=== PATIENT | male | born 1960 | race Caucasian/White ===

== ENCOUNTER 2021-10-08 12:44 | Emergency (ER) | payer OTHER ==
[~2021-10-08] VITALS: Ht 167.6 cm; Wt 79.8 kg
--- NOTE | 2021-10-08 12:44 | NUR ---
EDE RA90 Escorted by Daughter "Hx of Liver cirrhosis- weaker than usual". TO ER BED 8, HOOKED TO MONITOR, CHANGED TO HOSP GOWN, WARM BLANKET PROVIDED. PATIENT NOT ANSWERING WHEN QUESTIONS ARE ASKED. NOTED W LAC 20G IV PERIPHERAL LINE PATENT AND FLUSHING. HOOKED TO 500ML 0.9% NS. APPROXIMATELY 200ML GIVEN UPON ARRIVAL TO ED. AWAITING MD SINHA.
--- NOTE | 2021-10-08 12:47 | NUR ---
DR ENCISO AT BEDSIDE
--- NOTE | 2021-10-08 13:14 | NUR ---
TROLLEY [employer] AT [facility]
[2021-10-08 13:25] LABS: BASOPHILS # (AUTO) 0.2 K/uL (0.0-0.2); BASOPHILS % (AUTO) 1.3 % (0.0-2.0); EOSINOPHILS % (AUTO) 1.2 % (0.0-6.0); HEMATOCRIT 33 % (39-51); HEMOGLOBIN 11.2 g/dL (13.5-17.5); LYMPHOCYTES # (AUTO) 2.9 K/uL (0.8-4.8); LYMPHOCYTES % (AUTO) 21.3 % (20.0-44.0); MEAN CORPUSCULAR HGB CONC 34 g/dl (31.0-36.0); MEAN CORPUSCULAR VOLUME 93 fL (80-96); MONOCYTES # (AUTO) 1.5 K/uL (0.1-1.30); MONOCYTES % (AUTO) 11.4 % (2.0-12.0); NEUTROPHILS # (AUTO) 8.7 K/uL (1.8-8.9); NEUTROPHILS % (AUTO) 64.8 % (43.0-81.0); PLATELET COUNT (AUTO) 377 K/uL (150-450); RED BLOOD CELL COUNT(AUTO) 3.55 MIL/uL (4.5-6.0); WHITE BLOOD COUNT (AUTO) 13.4 K/uL (4.3-11.0)
--- NOTE | 2021-10-08 13:42 | NUR ---
CALLED [facility] [phone] WILL FAX US CLINICALS
--- NOTE | 2021-10-08 14:11 | NUR ---
rapid covid swab done and sent to lab
[2021-10-08 14:40] LABS: ALANINE AMINOTRANSFERASE 34 U/L (12-78); ALBUMIN 2.2 g/dL (3.4-5.0); ALKALINE PHOSPHATASE 329 U/L (46-116); ASPARTATE AMINOTRANSFERASE 68 U/L (15-37); BILIRUBIN,DIRECT 1.4 mg/dL (0.0-0.2); BILIRUBIN,TOTAL 2.3 mg/dL (0.2-1.0); CALCIUM, SERUM 8.1 mg/dL (8.5-10.1); CARBON DIOXIDE 23 mmol/L (21-32); CHLORIDE 107 mmol/L (98-107); CREATININE 1.4 mg/dL (0.6-1.3); GLUCOSE 117 mg/dL (74-106); POTASSIUM 3.5 mmol/L (3.5-5.1); SODIUM SERUM 143 mmol/L (136-145); TOTAL PROTEIN, SERUM 7.7 g/dL (6.4-8.2); UREA NITROGEN, BLOOD 12 mg/dL (7-18)
[2021-10-08] MEDS ORDERED: CEFEPIME 1 GM in IV D5W 50 ML IV ONE (15:30)
--- NOTE | 2021-10-08 15:36 | NUR ---
URINE SAMPLE COLLECTED AND SENT TO LAB
[2021-10-08 16:27] LABS: BILIRUBIN,URINE NEGATIVE (NEGATIVE); COLOR,URINE YELLOW (YELLOW); LEUKOCYTE ESTERASE ,URINE NEGATIVE (NEGATIVE); NITRITE, URINE NEGATIVE (NEGATIVE); PH,URINE 7.5 (5.0-8.0); PROTEIN,URINE NEGATIVE (NEGATIVE); UGLUCOSE NEGATIVE (NEGATIVE); UROBILINOGEN,URINE 0.2 EU/dL (0.2)
[2021-10-08 17:14] LABS: BAND % (MANUAL) 4 % (0.0-5.0); LYMPHOCYTES % (MANUAL) 16 % (16-48); MONOCYTES % (MANUAL) 7 % (0-11.0); NEUTROPHILS % (MANUAL) 73 (42-76)
--- NOTE | 2021-10-08 18:09 | NUR ---
RIDGELY [facility] 127/62 98 98% RR18 DR. WALKER WILL CALL US BACK.
--- NOTE | 2021-10-08 18:26 | NUR ---
FOLLOWED UP WITH MAIN LAB WITH AMMONIA RESULTS, PER DENTAL ASSISTANT, MACHINE IS HAVING MAINTENANCE AND WILL UPDATE US OF THE RESULT
--- NOTE | 2021-10-08 19:01 | NUR ---
CALLED RENEA WALKER [phone] IS NEGATIVE AND STILL AWAITING AMONIA LEVEL.
--- NOTE | 2021-10-08 19:37 | NUR ---
ammonioa 186
[2021-10-08 19:39] LABS: SERUM AMMONIA 186 umol/L (11-32)
[2021-10-08] MEDS ORDERED: LACTULOSE 10 G/15 ML UDC (PYXIS) PO ONE (20:00)
--- NOTE | 2021-10-08 20:02 | NUR ---
S/W JOSE G FROM [facility] [place] INFO GOING TO [facility] ACCEPTING MD DR MARCO Nelson ED TO ED [phone] [facility]
[2021-10-08] MEDS ORDERED: LACTULOSE 10 G/15 ML UDC (PYXIS) ONE (20:06)
[2021-10-08 20:22] VITALS: BP 106/66
--- NOTE | 2021-10-08 20:32 | NUR ---
REPORT GIVEN TO LEYLA
--- NOTE | 2021-10-08 20:48 | NUR ---
PT PICKED UP BY [facility] UNIT [facility]. PT IN STABLE CONDITION AT TIME OF TRANSFER. TRANSFER PAPERWORK COMPLETE AND PROVIDED WITH CD AND PT CHART TO PCA.
== END 2021-10-08 20:50 | disposition short-term general hospital (02) ==
LOC: ER 12:47
DX: K72.90 Hepatic failure, unspecified without coma (principal); A41.9 Sepsis, unspecified organism; Z20.822 Contact with and (suspected) exposure to COVID-19; I45.2 Bifascicular block; R00.0 Tachycardia, unspecified; K74.60 Unspecified cirrhosis of liver; D69.3 Immune thrombocytopenic purpura; E78.5 Hyperlipidemia, unspecified; I85.10 Secondary esophageal varices without bleeding; I10 Essential (primary) hypertension; E11.9 Type 2 diabetes mellitus without complications; E87.2 Acidosis
CPT/HCPCS: 36415; 70450; 71045; 80048; 80076; 81003; 82140; 83605 ×2; 84145; 84484; 85007; 85025; 85730; 87040 ×2; 87086; 87426; 93005; 96365; 99291; C9803; J0692; J7060